=== PATIENT | male | born 1955 | race Caucasian/White ===

== ENCOUNTER 2019-03-08 08:43 | Emergency (ER) | payer MEDICAID ==
[~2019-03-08] VITALS: Ht 165.1 cm; Wt 113.6 kg
[2019-03-08 09:06] VITALS: Ht 165.1 cm; Wt 113.6 kg
[2019-03-08] MEDS ORDERED: ONDANSETRON 4 MG INJ IV STA (10:14)
[2019-03-08] MEDS ORDERED: morphine 4 MG/ML VIAL IV STA (10:14)
--- NOTE | 2019-03-08 10:35 | ERD ---
ER Documentation Chief Complaint Chief Complaint 1. CHEST PRESSURE, 2. HTN, 3. PAINFUL ABDOMINAL HERNIA HPI During the patient's encounter translation services were utilized Language: Portuguese Source: In person This is a 63-year-old gentleman. The patient presents with a multitude of different complaints over a 2-4-year timeframe. He describes chest pressure that has been occurring over the past 2 years that is substernal, nonexertional and comes and goes throughout the day. It is unchanged over the past 1 year. Patient additionally describes abdominal discomfort worsening to the ventral area and left lower quadrant for approximately 4 years. The pain is sharp, nonradiating without associated nausea vomiting or constipation. Patient potentially describes some hypertension but does not take any blood pressure medications. He describes chronic right shoulder pain for approximately 3 years that is worse with rotational movement, nonexertional without falls or injury. Patient has not followed up with a primary care physician. He lives between the [facility] and [place]. The patient cannot articulate what caused his presentation today other than potentially the abdominal pain is worse than usual. The other issues are stable, unchanged for a number of years. ROS All systems reviewed and are negative except as per history of present illness. Medications Home Meds Reported Medications [Adepsique] No Conflict Check, 1 TAB PO QHS AMITRIPTILIN-10MG/DIAZEPAM-3MG/PERFENAZIN-2MG QHS 03/08/19 Losartan Potassium* (Losartan Potassium*) 50 Mg Tablet, 50 MG PO BID, TAB 03/08/19 Metoprolol Tartrate* (Lopressor*) 100 Mg Tablet, 100 MG PO BID, #60 TAB 03/08/19 Allergies Allergies: Coded Allergies: No Known Allergy (Unverified , 03/08/19) FmHx Family History: diabetes Physical Exam Vitals Vital Signs Date Temp Pulse Resp B/P (MAP) Pulse Ox O2 O2 Flow FiO2 Time Delivery Rate 03/08/19 99.0 90 16 194/95 98 09:06 (128) Physical Exam General: Well developed, well nourished, no acute distress Head: Normocephalic, atraumatic. Eyes: Pupils equally reactive, EOM intact ENT: Moist mucous membranes Neck: Supple, no lymphadenopathy Respiratory: Lungs clear bilaterally, no distress Cardiovascular: RRR, no murmurs, rubs, or gallops Abdominal: Soft, mild ventral hernia without evidence of incarceration or strangulation, mild tenderness to left lower quadrant : Deferred MSK: No edema, no unilateral swelling, 5/5 strength. Right shoulder with full active and passive range of motion without ligamentous or tendinous instability. Distal pulses intact. Radial, median, ulnar, axillary nerves intact. Neurologic: Alert and oriented, moving all extremities, normal speech, no focal weakness, no cerebellar signs Skin: No rash Psych: Normal mood Result Diagram: 03/08/19 1029 03/08/19 1029 Results 24 hrs Laboratory Tests Test 03/08/19 10:29 White Blood Count 8.1 10^3/ul Red Blood Count 4.45 10^6/ul Hemoglobin 13.9 g/dl Hematocrit 43.6 % Mean Corpuscular Volume 98.0 fl Mean Corpuscular Hemoglobin 31.2 pg Mean Corpuscular Hemoglobin Concent 31.9 g/dl Red Cell Distribution Width 12.9 % Platelet Count 171 10^3/UL Mean Platelet Volume 10.9 fl Immature Granulocytes % 0.500 % Neutrophils % 72.1 % Lymphocytes % 17.6 % Monocytes % 7.6 % Eosinophils % 1.8 % Basophils % 0.4 % Nucleated Red Blood Cells % 0.0 /100WBC Immature Granulocytes # 0.040 10^3/ul Neutrophils # 5.9 10^3/ul Lymphocytes # 1.4 10^3/ul Monocytes # 0.6 10^3/ul Eosinophils # 0.2 10^3/ul Basophils # 0.0 10^3/ul Nucleated Red Blood Cells # 0.0 10^3/ul Urine Color YELLOW Urine Clarity CLEAR Urine pH 5.0 Urine Specific [place] 1.015 Urine Ketones NEGATIVE mg/dL Urine Nitrite NEGATIVE mg/dL Urine Bilirubin NEGATIVE mg/dL Urine Urobilinogen NEGATIVE mg/dL Urine Leukocyte Esterase NEGATIVE Ryan/ul Urine Hemoglobin NEGATIVE mg/dL Urine Glucose NEGATIVE mg/dL Urine Total Protein NEGATIVE mg/dl Sodium Level 147 mmol/L Potassium Level 4.5 mmol/L Chloride Level 108 mmol/L Carbon Dioxide Level 30 mmol/L Anion Gap 9 Blood Urea Nitrogen 14 mg/dl Creatinine 0.81 mg/dl Est Glomerular Filtrat Rate mL/min > 60 mL/min Glucose Level 76 mg/dl Calcium Level 8.9 mg/dl Total Bilirubin 0.3 mg/dl Direct Bilirubin 0.00 mg/dl Indirect Bilirubin 0.3 mg/dl Aspartate Amino Transf (AST/SGOT) 18 IU/L Alanine Aminotransferase (ALT/SGPT) 16 IU/L Alkaline Phosphatase 123 IU/L Troponin I < 0.012 ng/ml Total Protein 7.5 g/dl Albumin 4.0 g/dl Globulin 3.50 g/dl Albumin/Globulin Ratio 1.14 Lipase 56 U/L Current Medications Medications Dose Sig/Kiko Start Time Status Last (Trade) Ordered Route PRN Stop Time Admin Dose Reason Admin Morphine 4 mg ONCE STAT 03/08/19 DC 03/08/19 Sulfate IV 10:14 03/08/19 10:31 (morphine) 10:16 Ondansetron 4 mg ONCE STAT 03/08/19 DC 03/08/19 HCl (Zofran IV 10:14 03/08/19 10:31 Inj) 10:16 Procedures/MDM EKG, MONITORS, & DIAGNOSTIC IMAGING: EKG: I reviewed and interpreted a 12-lead EKG. Rhythm: Normal sinus rhythm ST Changes: No contiguous ST segment elevations T waves: No contiguous T wave inversions Impression: No evidence of acute cardiac ischemia Chest x-ray: I reviewed and interpreted a 1 view of the chest Mediastinum: No enlargement Cardiac silhouette: No cardiomegaly Airspace: Clear lung zamudio bilaterally without evidence of pneumothorax Bones: No evidence of fracture CT abdomen and pelvis: IMPRESSION: Punctate nonobstructing bilateral renal calculi without secondary signs of urinary tract obstruction. Probable cyst in the anterior right mid kidney whereas exophytic 10 mm posterior focus at the same level cannot be further characterized by this exam. If no priors, further non emergent workup could include renal ultrasound or pre and multiphase postcontrast CT. Multifocal colonic diverticulosis throughout without evidence to suggest acute diverticulitis, and nor intestinal obstruction, free air or abscess. Additional findings including degenerative changes greatest at L4-5 and L5-S1, with bilateral L5 pars defects, along with extrinsic impression upon and relative narrowing of the left common iliac vein. RPTAT: HSAF LAB INTERPRETATION: I reviewed the laboratory testing and it shows no evidence of acute process MEDICAL DECISION MAKING: The patient has a multitude of different complaints over a 2-4-year timeframe none of which appear to be acute today. His only major acute issue could potentially be an exacerbation of his abdominal pain. The patient has chest pain that is described as pressure-like nonexertional. This is unlikely related to acute coronary syndrome. Stable angina could be certainly possible. EKG and troponin appropriate. I do not believe inpatient hospitalization is necessary given the chronicity and stability of the symptoms over a 2-year timeframe. He has no active chest pain currently. Patient has chronic right shoulder pain that seems to be musculoskeletal, no evidence of fracture or dislocation. No indication for x-ray imaging. He has abdominal pain with a reported ventral hernia without evidence of incarceration or strangulation. Symptoms present for many years. CT imaging to rule out malignancy would be appropriate, mass would be appropriate in obstruction but low pretest probability for all these processes. Patient was strongly advised that he needs to establish a primary care provider either in the [facility] or in [place]. I can provide the patient with local resources as well as [facility]. All of his issues are subacute and do not appear to be acutely exacerbated within the past week or even last month. The patient was informed that we are unlikely to find a cause for his chronic issues and he will likely be discharged with close primary care follow- up as needed. Return precautions for any worsening chest pain or exertional chest pain were discussed with the patient. ER COURSE: * The patient's laboratory testing and diagnostic imaging is nonspecific, unrevealing. The patient has no evidence of acute emergent medical condition that warrants hospitalization. Diagnostic imaging and laboratory testing was printed off for his follow-up benefit. * Patient is safe for discharge with primary care follow-up. Local resources provided. CONSULTATION: None DISPOSITION PLAN: The patient does not have an identifiable emergent medical condition that warrants inpatient hospitalization at this time. The patient is deemed safe for discharge with outpatient follow-up. We discussed follow up with the patient's primary care doctor within 24 to 48 hours as needed. We also discussed return to the emergency room for worsening symptoms or worsening condition. Outpatient referral: None required Discharge Medications: None required Departure Diagnosis: Primary Impression: Chronic abdominal pain Additional Impressions: Chronic chest pain Chronic right shoulder pain Condition: RACHALE Koo MD Mar 08, 2019 10:35
[2019-03-08] MEDS ORDERED: METO-407 PO (11:08)
[2019-03-08] MEDS ORDERED: LOSA50TA14 PO (11:09)
[2019-03-08] MEDS ORDERED: ADEPSIQUE PO (11:13)
[2019-03-08 12:51] VITALS: BP 157/89; PULSE 69; RESP 18
== END 2019-03-08 12:51 | disposition home or self-care (01) ==
LOC: E/R 08:43
DX: R10.9 Unspecified abdominal pain (principal); I10 Essential (primary) hypertension; R07.9 Chest pain, unspecified; M25.511 Pain in right shoulder
CPT/HCPCS: 36415; 71045; 74176; 80053; 81003; 83690; 84484; 85025; 93005; 96374; 96375; J2270; J2405; Z7502